=== PATIENT | male | born 2000 | race American Indian/Alaskan Native ===

== ENCOUNTER 2018-09-02 14:54 | Emergency (ER) | payer MEDICAID, OTHER ==
--- NOTE | 2018-09-02 16:06 | Emergency Department Report ---
Blank Doc - Documentation Documentation: This is a 18-year-old male that presents with lower back pain. This initial assessment/diagnostic orders/clinical plan/treatment(s) is/are subject to change based on patient's health status, clinical progression and re- assessment by fellow clinical providers in the ED. Further treatment and workup at subsequent clinical providers discretion. Patient/guardians urged not to elope from the ED as their condition may be serious if not clinically assessed and managed. Initial orders include: 1- Patient sent to [facility] for further evaluation and treatment
[2018-09-02 16:07] VITALS: BP 113/62
[2018-09-02] MEDS ORDERED: TORADOL IM ONE (17:50)
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
--- NOTE | 2018-09-02 19:20 | XRay Report ---
LUMBAR SPINE 3 VIEWS INDICATION / CLINICAL INFORMATION: back pain. COMPARISON: None available. FINDINGS: No fracture, subluxation or other significant abnormality. Signer Name: Syd Sinha MD Signed: 09/02/2018 6:15 PM Workstation Name: [id number]
== END 2018-09-02 19:27 | disposition home or self-care (01) ==
LOC: ED 14:54
DX: M54.42 Lumbago with sciatica, left side (principal); M54.41 Lumbago with sciatica, right side; G89.29 Other chronic pain
CPT/HCPCS: 72100; 96372; 99283; J1885

== ENCOUNTER 2019-04-22 11:48 | Emergency (ER) | payer OTHER ==
[2019-04-22 13:41] VITALS: BP 132/77
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
== END 2019-04-22 14:35 | disposition left against medical advice (07) ==
LOC: ED 11:48
DX: M25.552 Pain in left hip (principal); R51 Headache; V43.52XA Car driver injured in collision with other type car in traffic accident, initial encounter; Y93.89 Activity, other specified; Y92.410 Unspecified street and highway as the place of occurrence of the external cause; Y99.8 Other external cause status
CPT/HCPCS: 99282

== ENCOUNTER 2020-08-15 13:57 | Emergency (ER) | payer OTHER ==
[2020-08-15] MEDS ORDERED: IBUPROFEN 800 MG TAB PO STA (14:30)
[2020-08-15] MEDS ORDERED: ACETAMINOPHEN 500 MG TAB PO STA (14:30)
[2020-08-15 14:31] VITALS: BP 116/59
[2020-08-15] MEDS ORDERED: TETANUS,DIPH,PERTUSS(ACELL) VACCINE 0.5 ML SYRINGE IM ONE (14:31)
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
[2020-08-15] MEDS ORDERED: NEOMY 3.5 MG/BACIT 400 UNITS/POLY B 5000 UNITS/GM OINT PACKET TP STA (15:27)
[2020-08-15] MEDS ORDERED: SODIUM CHLORIDE 0.9% IRR 500 ML BOTTLE IR ONE (15:28)
[2020-08-15] MEDS ORDERED: RABIES IMMUNE GLOBULIN P/F 300 UNIT/ML INJ 5 ML IM ONE (15:31)
[2020-08-15] MEDS ORDERED: RABIES VACCINE, HUMAN DIPLOID/PF 2.5 UNIT/ML VIAL IM ONE (15:34)
[2020-08-15] MEDS ORDERED: SODIUM CHLORIDE IRRI 500 ML 500 ML IR ONE (17:56)
[2020-08-15] MEDS ORDERED: NEOMY 3.5 MG/BACIT 400 UNITS/POLY B 5000 UNITS/GM OINT PACKET TP ONE (19:00)
== END 2020-08-15 20:10 | disposition home or self-care (01) ==
LOC: ED 13:57
DX: S81.851A Open bite, right lower leg, initial encounter (principal); T07.XXXA Unspecified multiple injuries, initial encounter; Z79.899 Other long term (current) drug therapy; W54.0XXA Bitten by dog, initial encounter; Y93.89 Activity, other specified; Y92.89 Other specified places as the place of occurrence of the external cause; Y99.8 Other external cause status
CPT/HCPCS: 90375; 90471; 90675; 90715; 96372; 99282; A6250

== ENCOUNTER 2021-09-09 12:51 | Emergency (ER) | payer OTHER ==
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
[2021-09-09 16:03] VITALS: BP 118/78
== END 2021-09-09 16:05 | disposition home or self-care (01) ==
LOC: ED 12:51
DX: H10.33 Unspecified acute conjunctivitis, bilateral (principal)
CPT/HCPCS: 99282